=== PATIENT | male | born 1930 | race Caucasian/White ===

== ENCOUNTER → 2017-08-12 | Outpatient (CLI) | payer MEDICARE ==
[~2017-08-12] MED LIST: ACET500C OR; ACET500C PO; AMLO2.5T PO; ARTH650T11 PO; ASPI81TA83 OR; ATEN25TA OR; COLA50CA3 PO; DICL13PA TD; DOCU10CA PO; GABA100C PO; HYDR-3713 PO; LISI-538 PO; LOTR5CAP2 PO; MAGN1TAB25 PO; MELOPOW PO; SENN187T OR; TRAM100T13 PO; TRAM50TA2 OR; TYLE325T5 PO; ULTR37.539 PO; ULTR37.54 PO; VICO5TAB OR
[2017-08-12 09:41] LABS: CREATININE FOR GFR 1.61 MG/DL (0.70-1.30); GLOMERULAR FILTRATION RATE 43.5 (>35)
== END ==
LOC: M LAB 08:48
PROVIDERS: ATTEND Nurse Practitioner Family
DX: M96.1 Postlaminectomy syndrome, not elsewhere classified (principal); M51.26 Other intervertebral disc displacement, lumbar region

== ENCOUNTER → 2017-11-25 | Outpatient (CLI) | payer MEDICARE ==
[~2017-11-25] MED LIST changes: -ACET500C OR; -ACET500C PO; -AMLO2.5T PO; -ARTH650T11 PO; -ASPI81TA83 OR; -ATEN25TA OR; -COLA50CA3 PO; -DICL13PA TD; -DOCU10CA PO; +E-Z-GAS II EFFERVESCENT PACKET (SODIUM BICARB./CITRIC ACID/SIMETHICONE) As Ordered; +E-Z-HD 98% w/w 340GM SUSP BTL As Ordered; +E-Z-PAQUE 96% w/w SUSP 176GM BTL As Ordered; -GABA100C PO; -HYDR-3713 PO; -LISI-538 PO; -LOTR5CAP2 PO; -MAGN1TAB25 PO; -MELOPOW PO; -SENN187T OR; -TRAM100T13 PO; -TRAM50TA2 OR; -TYLE325T5 PO; -ULTR37.539 PO; -ULTR37.54 PO; -VICO5TAB OR
== END ==
LOC: M RAD 09:46
DX: R13.13 Dysphagia, pharyngeal phase (principal); K22.8 Other specified diseases of esophagus; K44.9 Diaphragmatic hernia without obstruction or gangrene
CPT/HCPCS: 74220

== ENCOUNTER 2019-08-22 13:26 | Observation (INO) | payer MEDICARE ==
[~2019-08-22] VITALS: Ht 170.2 cm; Wt 72.5 kg
[~2019-08-22 13:26] MED LIST changes: +ACET500C OR; +ACET500C PO; +AMLO2.5T PO; +ARTH650T11 PO; +ASPI81TA83 OR; +ATEN25TA OR; +COLA50CA3 PO; +DICL13PA TD; +DOCU10CA PO; -E-Z-GAS II EFFERVESCENT PACKET (SODIUM BICARB./CITRIC ACID/SIMETHICONE) As Ordered; -E-Z-HD 98% w/w 340GM SUSP BTL As Ordered; -E-Z-PAQUE 96% w/w SUSP 176GM BTL As Ordered; +GABA100C PO; +HYDR-3713 PO; +LISI-538 PO; +LOTR5CAP2 PO; +MAGN1TAB26 PO; +MELOPOW PO; +SENN187T OR; +TRAM100T13 PO; +TRAM50TA2 OR; +TYLE325T5 PO; +ULTR37.539 PO; +ULTR37.54 PO; +VICO5TAB OR
[2019-08-22] MEDS ORDERED: LOSA50TA5 PO (13:38)
[2019-08-22] MEDS ORDERED: FENT75DI5 TOP (13:38)
--- NOTE | 2019-08-22 14:18 | REP ---
Clinical: Chest pain . Comparison: 09/08/2010 . Findings: The mediastinum and cardiac silhouette are stable and within normal limits for portable technique. The lung ortiz demonstrate chronic changes without acute consolidation, effusion, or pneumothorax. Skeletal structures are intact. Impression: Chronic stable changes. No acute cardiopulmonary process appreciated. Electronically Signed by Sajan Alfonso MD 08/22/2019 02:10 P
--- NOTE | 2019-08-22 14:36 | REP ---
Clinical: Confusion and altered mental status. Comparison: None . Findings: Age-related atrophy and microvascular ischemic changes are appreciated. The ventricles and sulci are symmetric. Carroll-white differentiation is maintained. There is no evidence for acute intracranial hemorrhage, mass/mass effect, pathology or infarction. No extra-axial fluid collection. Calvarium is intact. Paranasal sinuses and mastoid air cells are clear. Impression: Age related atrophy and microvascular ischemic changes. No acute intracranial hemorrhage, infarction, or mass/mass effect. Electronically Signed by Sajan Alfonso MD 08/22/2019 02:27 P
[2019-08-22] MEDS ORDERED: ASPI81TA26 PO (14:46)
[2019-08-22] MEDS ORDERED: COLA100C5 PO (14:46)
[2019-08-22 14:54] LABS: VENOUS BASE EXCESS -3.6 (-2.0-2.0); VENOUS HCO3 21.9 MEQ/L (23.0-27.0); VENOUS O2 SATURATION 64.8 % (60.0-80.0); VENOUS PARTIAL PRESSURE CO2 41.2 mmHg (38.0-50.0); VENOUS PARTIAL PRESSURE O2 35.6 mmHg (30.0-50.0); VENOUS PH 7.344 UNITS (7.330-7.430); VENOUS STANDARD HCO3 20.7 MEQ/L; VENOUS TOTAL CO2 23.2 MEQ/L (24.0-28.0)
[2019-08-22 15:28] LABS: BASO % 0.5 % (0.0-1.0); EOS # 0.1 10^3/uL (0.0-0.5); EOS % 2.1 % (0.0-3.0); HEMATOCRIT 45.3 % (42.0-52.0); HEMOGLOBIN 14.2 g/dl (13.5-17.5); LYMPH # 1.5 10^3/uL (1.5-5.0); MEAN CORPUSCULAR HEMOGLOBIN 31.6 pg (27.0-33.0); MEAN CORPUSCULAR HGB CONC 31.3 g/dl (32.0-36.5); MEAN CORPUSCULAR VOLUME 100.7 fl (80.0-96.0); MONO # 0.7 10^3/uL (0.0-0.8); MONO % 10.2 % (0.0-5.0); NEUTROPHILS # 4.2 10^3/uL (1.5-8.5); NEUTROPHILS % 63.9 % (36.0-66.0); PLATELET COUNT, AUTOMATED 230 10^3/uL (150-450); WHITE BLOOD COUNT 6.6 10^3/uL (4.0-10.0)
[2019-08-22 15:37] LABS: ALBUMIN 3.5 GM/DL (3.2-5.2); ALT/SGPT 16 U/L (12-78); BILIRUBIN,DIRECT 0.2 MG/DL (0.0-0.2); BILIRUBIN,TOTAL 0.6 MG/DL (0.2-1.0); BLOOD UREA NITROGEN 32 MG/DL (7-18); CALCIUM LEVEL 9.2 MG/DL (8.8-10.2); CARBON DIOXIDE LEVEL 21 MEQ/L (21-32); CHLORIDE LEVEL 116 MEQ/L (98-107); CK-MB VALUE MASS < 1.0 NG/ML (<3.6); CPK CREATINE PHOSPHOKINASE 33 U/L (39-308); CREATININE FOR GFR 1.49 MG/DL (0.70-1.30); GLOMERULAR FILTRATION RATE 47.4 (>35); GLUCOSE, FASTING 94 MG/DL (70-100); MB/CK RELATIVE INDEX 3.03 (< OR =4); NT-PRO BNP 5058 PG/ML (<450); POTASSIUM SERUM 4.9 MEQ/L (3.5-5.1); SODIUM LEVEL 146 MEQ/L (136-145); TOTAL PROTEIN 6.7 GM/DL (6.4-8.2); TROPONIN I 0.02 NG/ML (< 0.10)
[2019-08-22] MEDS ORDERED: NS 500 ML IV ONE (15:45)
[2019-08-22 17:20] VITALS: BP 190/70
[2019-08-22] MEDS ORDERED: ACETAMINOPHEN TAB 650MG DOSE (2X325MG) PO PRN (18:15)
--- NOTE | 2019-08-22 18:36 | HPEPDOC ---
General Date of Admission Aug 22, 2019 at 13:27 Date of Service: Aug 22, 2019 Chief Complaint The patient is a 88-year-old male admitted with a reason for visit of Bradycardia With 41-50 Beats Per Min,Chronic Pain. Source: Family Exam Limitations: Mild cognitive slowing Timing/Duration: 24 hours Severity: Mild Associated Symptoms: Other (confusion) History of Present Illness This 88-year-old male who is in remarkably good state of health. His most significant medical problems and he has chronic back pain for many years. He has had multiple surgical procedures and he has been followed by pain clinic. His sole pain medication currently is fentanyl patch. Family has noted him to be confused today with not knowing his location or sequence of events. He has not had any fall injuries and has not hit his head. He has not had any changes to his medication dosages which are few. He has not had any increased difficulty with his ambulation or motor movements. Upon evaluation in the emergency room. He is noted to have some bradycardia with heart rate down into the 40s. By report, his baseline heart rate is in the 50s. Home Medications Scheduled Aspirin (Aspirin EC) 81 Mg Tablet.dr, 81 MG PO Q2D, (Reported) Docusate Sodium (Colace) 100 Mg Capsule, 100 MG PO DAILY, (Reported) Losartan/Hydrochlorothiazide (Losartan-Hctz 50-12.5 mg Tab) 1 Each Tablet, 1 TAB PO DAILY, (Reported) fentaNYL (fentaNYL) 75 Mcg Patch.td72, 75 MCG TOP Q3RD, (Reported) CURRENTLY APPLIED TO LEFT SIDE OF CHEST Allergies Coded Allergies: No Known Allergies (Unverified , 09/17/15) Past Medical History Medical History Past medical history is remarkable for hypertension for which she is on medication, and chronic back pain Surgical History Surgical history includes multiple cervical spine surgeries with fusion, multiple lower back surgeries, arthroscopic left knee surgery, unspecified, left shoulder surgery with repair, right carpal tunnel decompression, radical prostatectomy Social History * Smoker: former Smoker Alcohol: occationally Drugs: denies Psychosocial History: No pertinent psych hx 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 moist/pink, Pharynx Normal, Tongue Midline Neck Exam: Positive: Supple; Negative: JVD, thyromegaly, +2 carotid pulse wo bruit, Lymphadenopathy, Other Chest Exam: Positive: Clear to auscultation, Normal air movement Heart Exam: Positive: Bradycardic (but then heart rate increases on its own) Telemetry: Positive: Bradycardia Abdomen Exam: Positive: Normal bowel sounds Extremity Exam: Negative: Clubbing, Cyanosis, Edema, Normal pulses, Tenderness, Swelling, Other Skin Exam: Positive: Nl turgor and temperature Neuro Exam: Negative: Normal Gait, Normal Speech, Strength at 5/5 X4 ext, Normal Tone, Sensation Intact, Cranial Nerves 3-12 NL, Reflexes 2+, Other (the patient does not exhibit any focal neuromotor deficits) Psych Exam: Positive: Mental status NL, Mood NL, Other (he is able to answer most of my history questions fairly accurately with confirmation from his daughters at bedside. He does get confused about his location) Vital Signs Vital Signs Date Time Temp Pulse Resp B/P (MAP) Pulse Ox O2 Delivery O2 Flow Rate FiO2 08/22/19 17:20 98.0 54 20 190/70 (110) 96 Room Air Laboratory Data Labs 24H Laboratory Tests 2 08/22/19 14:09: Lactic Acid Level 1.9 08/22/19 14:37: Blood Gas Bicarbonate Standard 20.7, Venous Blood pH 7.344, Venous Blood Partial Pressure CO2 41.2, Venous Blood Partial Pressure O2 35.6, Venous Blood Total Carbon Dioxide 23.2L, Venous Blood HCO3 21.9L, Venous Blood Oxygen Saturation 64.8, Venous Blood Base Excess -3.6L, Anion Gap 9, Glomerular Filtration Rate 47.4, Calcium Level 9.2, Total Bilirubin 0.6, Direct Bilirubin 0.2, Aspartate Amino Transf (AST/SGOT) 11, Alanine Aminotransferase (ALT/SGPT) 16, Alkaline Phosphatase 99, Total Creatine Kinase 33L, Creatine Kinase MB < 1.0, Creatine Kinase MB Relative Index 3.03, Troponin I 0.02, MP-Qee-E-Type Natriuretic Peptide 5058H, Total Protein 6.7, Albumin 3.5, Albumin/Globulin Ratio 1.09, Thyroid Stimulating Hormone (TSH) 1.080 12/24/19 14:56: Immature Granulocyte % (Auto) 0.3, Neutrophils (%) (Auto) 63.9, Lymphocytes (%) (Auto) 23.0L, Monocytes (%) (Auto) 10.2H, Eosinophils (%) (Auto) 2.1, Basophils (%) (Auto) 0.5, Neutrophils # (Auto) 4.2, Lymphocytes # (Auto) 1.5, Monocytes # (Auto) 0.7, Eosinophils # (Auto) 0.1, Basophils # (Auto) 0.0, Nucleated Red Blood Cells % (auto) 0.0 CBC/BMP Laboratory Tests 08/22/19 14:37 08/22/19 14:56 Microbiology Microbiology 08/22/19 Blood Culture, Received Pending 08/22/19 Blood Culture, Received Pending Assessment/Plan 1. Confusion. This by report is of acute onset. It is fairly subtle; he is confused about sequence of events and about his location. He does not exhibit any neuromotor deficits. CT scan of the head is negative for any sort of infarct or bleed; he does show signs of age-related cerebral atrophy. Plans are to obtain an MRI to fully rule out acute stroke. 2. Bradycardia. Review of sparse clinic notes shows him to have a heart rate at best of 62. Patient will be monitored on telemetry overnight. We will also follow cardiac enzymes. Hypertension. Patient does have an apparent history of hypertension by virtue of review clinic notes and the fact that he is on losartan. It is not clear whether he has had his losartan today, so we will restore it. Plan / VTE VTE Prophylaxis Ordered?: Yes (Lovenox) Plan Diet: Continue Current Activity: Continue Current Diagnostics: MRI (to fully rule out CVA) Anticipated Discharge: Home MARIANA GEORGE MD Aug 22, 2019 18:35
[2019-08-22 20:00] VITALS: BP 120/48
--- NOTE | 2019-08-22 20:34 | ECGEPIP ---
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
[2019-08-22 23:59] VITALS: BP 160/70
[2019-08-23 04:00] VITALS: BP 140/58
[2019-08-23 05:51] LABS: HEMATOCRIT 45.8 % (42.0-52.0); MEAN CORPUSCULAR HEMOGLOBIN 31.3 pg (27.0-33.0); MEAN CORPUSCULAR HGB CONC 30.6 g/dl (32.0-36.5); MEAN CORPUSCULAR VOLUME 102.5 fl (80.0-96.0); PLATELET COUNT, AUTOMATED 179 10^3/uL (150-450); RED BLOOD COUNT 4.47 10^6/uL (4.30-6.10); WHITE BLOOD COUNT 6.1 10^3/uL (4.0-10.0)
[2019-08-23 06:13] LABS: CALCIUM LEVEL 8.5 MG/DL (8.8-10.2); CREATININE FOR GFR 1.27 MG/DL (0.70-1.30); POTASSIUM SERUM 4.7 MEQ/L (3.5-5.1)
[2019-08-23 08:00] VITALS: BP 192/68
[2019-08-23] MEDS: DOCUSATE SODIUM 100 MG CAP PO SCH (08:34)
[2019-08-23] MEDS: ENOXAPARIN 40 MG/0.4 ML SYRINGE (J1650) SC SCH (08:34)
[2019-08-23] MEDS ORDERED: LOSARTAN 50 MG TAB PO SCH (09:00)
[2019-08-23 12:00] VITALS: BP 180/72
[2019-08-23] MEDS: MELOXICAM (MOBIC) 7.5 MG TAB PO SCH (12:45)
[2019-08-23] MEDS: **hydrALAZINE HCL** 25 MG TAB PO SCH ×2 (14:19→20:36)
[2019-08-23] MEDS ORDERED: LOSARTAN 50 MG TAB PO ONE (14:30)
--- NOTE | 2019-08-23 14:58 | IPNPDOC ---
Text Note Date of Service The patient was seen on 08/23/19. NOTE SUBJECTIVE: Mr. Sanders was fully awake, alert and conversant this morning. He did not complain of any adverse symptoms overnight. Patient was admitted with concerns for "altered" mental status and bradycardia. Overnight, the patient's heart rate has been as low as 39 with pauses and then up to 54. Review of the past medical record shows his highest heart rate recorded to be 62. The patient is not often seen by physicians. OBJECTIVE: Please see vital signs below Physical exam: HEENT: Neck is supple with no adenopathy or thyromegaly, oral mucosa is moist, he does not have any scleral injection Cardiovascular exam: Slow but regular rate and rhythm, no appreciable murmur, no positives currently. Respiratory: Clear to auscultation with good air movement. Abdomen: Soft, flat, nontender. Extremities: No peripheral edema or lesions. Neuro: Cranial nerves II through XII appear to be fully intact to function, speech is clear, I am unable to determine whether his responses are fully factual as his daughters are not currently at bedside, but his overall responses seem to be appropriate. ASSESSMENT/PLAN: 1. Confusion. This is by report of acute onset. He does not appear confused to me today, but his daughters are not at bedside to confirm. Plans are to obtain an MRI to fully rule out CVA; it is not impossible that he may have had a TIA. 2. Bradycardia. Patient did exhibit pauses overnight. Patient may require pacemaker. Cardiology services contacted and they are following with the patient. We are ruling out fentanyl as contributory factor. Serial cardiac enzymes are negative. I am not sure we can readily attribute his confusion to bradycardia. 3. Hypertension. Although not listed patient does have a history of hypertension and apparently was usually on losartan. This has been restored, but patient continues with systolic blood pressure up to 192. We have adjusted his losartan dosing and added additional agent for blood pressure control for now. Uncontrolled hypertension certainly puts him at risk of TIA/CVA. 4. Chronic pain Patient has a history of chronic back pain due to spinal stenosis and has had multiple surgeries and other injection treatments. He is currently managed with a fentanyl patch. Cardiology concerned this may in fact be his bradycardia etiology and attempting to make use of alternative agent. VS,Fishbone, I+O VS, Fishbone, I+O Laboratory Tests 08/22/19 14:56 08/23/19 05:16 Vital Signs Date Time Temp Pulse Resp B/P (MAP) Pulse Ox O2 Delivery O2 Flow Rate FiO2 08/23/19 14:19 180/72 08/23/19 12:00 97.4 44 16 95 Room Air I&O- Last 24 Hours up to 6 AM 08/23/19 06:00 Intake Total 360 ml Output Total 0 ml Balance 360 ml MARIANA GEORGE MD Aug 23, 2019 14:58
[2019-08-23 16:00] VITALS: BP 170/68
[2019-08-23] MEDS ORDERED: SLF 3 ML SYR IV PRN (16:00)
[2019-08-23 20:00] VITALS: BP 174/95
[2019-08-23] MEDS: SLF 3 ML SYR IV SCH (20:36)
[2019-08-24] VITALS: BP 162/60
[2019-08-24] MEDS: SLF 3 ML SYR IV SCH ×2 (03:26→14:42)
[2019-08-24 03:54] LABS: APPEARANCE, URINE CLEAR (CLEAR); BACTERIA, URINE AUTO NEGATIVE (NEGATIVE); BILIRUBIN, URINE AUTO NEGATIVE (NEGATIVE); BLOOD, URINE BLOOD NEGATIVE (NEGATIVE); COLOR, URINE YELLOW (YELLOW); GLUCOSE, URINE (UA) AUTO NEGATIVE (NEGATIVE); KETONE, URINE AUTO TRACE mg/dL (NEGATIVE); LEUKOCYTE ESTERASE, URINE AUTO NEGATIVE (NEGATIVE); MUCUS, URINE SMALL (NEGATIVE); NITRITE, URINE AUTO NEGATIVE (NEGATIVE); PROTEIN, URINE AUTO NEGATIVE (NEGATIVE); RBC, URINE AUTO 1 /HPF (0-3); SPECIFIC GRAVITY URINE AUTO 1.014 (1.002-1.035); SQUAMOUS EPITHELIAL CELL UR AU 0 /HPF (0-6); UROBILINOGEN, URINE AUTO 0.2 mg/dL (0.0-2.0); WBC, URINE AUTO 0 /HPF (0-3)
[2019-08-24 04:00] VITALS: BP 172/82
[2019-08-24 06:13] LABS: BLOOD UREA NITROGEN 21 MG/DL (7-18); CALCIUM LEVEL 9.2 MG/DL (8.8-10.2); CARBON DIOXIDE LEVEL 26 MEQ/L (21-32); CHLORIDE LEVEL 110 MEQ/L (98-107); CREATININE FOR GFR 1.21 MG/DL (0.70-1.30); GLOMERULAR FILTRATION RATE > 60.0 (>35); GLUCOSE, FASTING 120 MG/DL (70-100); POTASSIUM SERUM 3.8 MEQ/L (3.5-5.1); SODIUM LEVEL 143 MEQ/L (136-145)
[2019-08-24 08:00] VITALS: BP 154/90
[2019-08-24 08:30] VITALS: BP 154/90
[2019-08-24] MEDS: MELOXICAM (MOBIC) 7.5 MG TAB PO SCH (08:30)
[2019-08-24] MEDS: **hydrALAZINE HCL** 25 MG TAB PO SCH (08:30)
[2019-08-24] MEDS: DOCUSATE SODIUM 100 MG CAP PO SCH (08:30)
[2019-08-24] MEDS ORDERED: ATORVASTATIN 20 MG TAB PO SCH (09:00)
[2019-08-24] MEDS ORDERED: fentaNYL 75 MCG/HR PATCH TOP SCH (09:00)
[2019-08-24] MEDS ORDERED: FENTANYL REMOVAL DOCUMENTATION MISC XX SCH (09:00)
[2019-08-24] MEDS ORDERED: LOSARTAN 50 MG TAB PO SCH (09:00)
[2019-08-24] MEDS ORDERED: ASPIRIN 81 MG ENTERIC TAB PO SCH (09:00)
[2019-08-24] MEDS: ENOXAPARIN 40 MG/0.4 ML SYRINGE (J1650) SC SCH (09:06)
--- NOTE | 2019-08-24 10:47 | REPVR ---
PROCEDURE INFORMATION: Exam: MR Head Without Contrast Exam date and time: 08/24/2019 6:13 PM Age: 88 years old Clinical indication: Altered mental status/memory loss; Confusion or disorientation TECHNIQUE: Imaging protocol: MR of the head without contrast. 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 Mild age-appropriate cerebral atrophy with moderate periventricular leukomalacia consistent with chronic underlying small vessel ischemic disease. The vestibulocochlear complexes bilaterally are normal. Ventricles: Normal. No ventriculomegaly. Bones/joints: Unremarkable. Soft tissues: Unremarkable. Sinuses: Normal as visualized. No acute sinusitis. Mastoid air cells: Normal as visualized. No mastoid effusion. Orbits: Unremarkable. IMPRESSION: 1. 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 2. Mild age-appropriate cerebral atrophy with moderate periventricular leukomalacia consistent with chronic underlying small vessel ischemic disease. THIS REPORT CONTAINS FINDINGS THAT MAY BE CRITICAL TO PATIENT CARE.: The findings were discussed via telephone conference with MARIANA Fox at 08/24/2019 10:44 AM EST. Electronically signed by: Chris Bo On 08/24/2019 10:46:35 AM
[2019-08-24 12:00] VITALS: BP 140/62
[2019-08-24 16:00] VITALS: BP 130/62
[2019-08-24] MEDS ORDERED: ASPI81TA26 PO (16:00)
[2019-08-24] MEDS ORDERED: OMEP20TA9 PO (16:00)
[2019-08-24] MEDS ORDERED: LOSA100T8 PO (16:00)
[2019-08-24] MEDS ORDERED: HYDR25TA PO (16:00)
[2019-08-24] MEDS ORDERED: MELO7.5T35 PO (16:00)
[2019-08-24] MEDS ORDERED: ATOR1TAB21 PO (16:00)
--- NOTE | 2019-08-24 22:01 | DS.PDOC ---
Discharge Summary General Date of Admission Aug 22, 2019 at 13:27 Date of Discharge August 24, 2019 Discharge Summary PROCEDURES PERFORMED DURING STAY: [Echocardiogram]. ADMITTING DIAGNOSES: 1. . DISCHARGE DIAGNOSES: 1. . COMPLICATIONS/CHIEF COMPLAINT: Bradycardia With 41-50 Beats Per Min,Chronic [place] n. HISTORY OF PRESENT ILLNESS: . HOSPITAL COURSE: . DISCHARGE MEDICATIONS: Please see below. ALLERGIES: Please see below. PHYSICAL EXAMINATION ON DISCHARGE: VITAL SIGNS: Please see below. GENERAL: HEENT: NECK: CARDIOVASCULAR EXAMINATION: RESPIRATORY EXAMINATION: ABDOMINAL EXAMINATION: EXTREMITIES: SKIN: NEUROLOGICAL EXAMINATION: PSYCHIATRIC EXAMINATION: LABORATORY DATA: Please see below. IMAGING: PROGNOSIS: ACTIVITY: [As tolerated]. DIET: DISCHARGE PLAN: DISPOSITION: 06 Home Health Service. DISCHARGE INSTRUCTIONS: 1. . ITEMS TO FOLLOWUP ON ON OUTPATIENT: 1. . DISCHARGE CONDITION: [Stable]. TIME SPENT ON DISCHARGE: Greater than minutes. Vital Signs/I&Os Vital Signs Date Time Temp Pulse Resp B/P (MAP) Pulse Ox O2 Delivery O2 Flow Rate FiO2 08/24/19 16:00 96.4 70 16 130/62 (84) 99 Room Air I&O- Last 24 Hours up to 6 AM 08/24/19 07:59 Intake Total 120 ml Output Total 420 ml Balance -300 ml Laboratory Data Labs 24H Laboratory Tests 2 08/24/19 03:31: Urine Color YELLOW, Urine Appearance CLEAR, Urine pH 6.0, Urine Specific [place] 1.014, Urine Protein NEGATIVE, Urine Glucose (Auto)(UA) NEGATIVE, Urine Ketones (Auto) TRACEH, Urine Blood NEGATIVE, Urine Nitrite NEGATIVE, Urine Bilirubin NEGATIVE, Urine Urobilinogen 0.2, Urine Leukocyte Esterase (Auto) NEGATIVE, Urine WBC (Auto) 0, Urine RBC (Auto) 1, Urine Hyaline Casts (Auto) 0, Urine Bacteria (Auto) NEGATIVE, Urine Squamous Epithelial Cells 0, Urine Mucus (Auto) SMALL, Urine Sperm (Auto) 08/24/19 05:17: Anion Gap 7L, Glomerular Filtration Rate > 60.0, Calcium Level 9.2 CBC/BMP Laboratory Tests 08/24/19 05:17 Microbiology Microbiology 08/22/19 Blood Culture - Preliminary, Resulted No Growth after 48 hours. All Specime... 08/22/19 Blood Culture - Preliminary, Resulted No Growth after 48 hours. All Specime... Discharge Medications Scheduled Aspirin (Aspirin EC) 81 Mg Tablet.dr, 81 MG PO DAILY Atorvastatin Calcium (Atorvastatin Calcium) 20 Mg Tablet, 40 MG PO QHS Docusate Sodium (Colace) 100 Mg Capsule, 100 MG PO DAILY, (Reported) Hydralazine HCl (Hydralazine HCl) 25 Mg Tablet, 25 MG PO BID Losartan/Hydrochlorothiazide (Losartan-Hctz 100-12.5 mg Tab) 1 Each Tablet, 1 TAB PO DAILY Meloxicam (Meloxicam) 7.5 Mg Tablet, 7.5 MG PO DAILY Omeprazole (Omeprazole) 20 Mg Tablet.dr, 1 TAB PO DAILY Allergies Coded Allergies: No Known Allergies (Unverified , 09/17/15) MARIANA GEORGE MD Aug 24, 2019 22:01
--- NOTE | 2019-08-25 02:11 | CR ---
DATE OF CONSULTATION: 08/24/2019 BRIEF CARDIOLOGY CONSULT NOTE REFERRING PHYSICIAN: Simran Torres MD PRIMARY CARE PROVIDER: Dr. Noman Santos INDICATION: Bradycardia and confusion. CLINICAL SUMMARY: This 88-year-old resident of [place], retired gentleman with history of hypertension and complicated degenerative disk disease with several cervical spine fusions and lumbar laminectomy followed by the pain clinic currently on a fentanyl patch, was found by his family to be more confused. He had not fallen and had not suffered any head injury. He has still been able to ambulate without problem. He was taken by his family to the emergency room and was found to have atrial fibrillation with somewhat slow ventricular response down into the 40s. His blood pressure was 158/68 without significant orthostatic drop, respiratory 18, O2 saturation 97% on room air and he was afebrile. He was admitted to the hospitalist service for observation on a telemetry unit and cardiology consultation was placed along with an order for an echocardiogram. HIS HOME MEDICATIONS INCLUDED: Losartan and hydrochlorothiazide 50-12.5 one tablet daily, aspirin 81 mg daily, Colace 100 mg by mouth daily and fentanyl 75 mcg patch every 72 hours. ALLERGIES: None known. INVESTIGATIONS: Chest x-ray reviewed independently showed obvious cardiomegaly even allowing for this portable upright technique, but with some tortuosity of his thoracic aorta with calcification of his aortic arch. Pulmonary arterial vessels appear to be prominent, but no pulmonary venous congestion. Well inflated lung ortiz with no localized infiltrate or pleural effusion. EKG: Underlying atrial fibrillation/flutter with slow ventricular response averaging 43 bpm. Left axis deviation in keeping with left anterior hemiblock with slow precordial R-wave progression. Incomplete left bundle branch block. Nonspecific lateral repolarization abnormalities likely LV strain. Echocardiogram: Read by myself with separate official report pending - this showed mild concentric left ventricular hypertrophy with proximal septal wall motion abnormality suspected to be related to right ventricular pressure overload yet preserved global resting left ventricular systolic function. At least mildly dilated left atrium with currently normal estimated mean left atrial pressure. At least moderately dilated right heart chambers with right ventricular hypokinesis and at least moderately severe pulmonary hypertension. His inferior vena cava was quite dilated to 2.7 cm with reduced respiratory collapse in keeping with right heart failure. Moderate aortic valvular sclerosis without functional abnormality. Normal aortic dimensions. Mild to moderate mitral annular calcification with mild insufficiency. Normal appearing tricuspid valve with moderate insufficiency. No apparent intracardiac mass or pericardial effusion. Blood work: Hemoglobin remains stable at 14 with normal white blood cell counts and platelet counts. The arterial blood gas was performed on admission, but this was of venous specimens showing a pH of 7.3, pCO2 of 41 and pO2 of 36. Electrolytes showed a marginal hypernatremia of 146, but were otherwise normal. BUN 32, creatinine 1.49 with IV hydration these normalize. Today, electrolytes were imbalance with BUN at 21, creatinine 1.2. Admission random glucose was 94. Normal liver function studies and troponin I level. Ultrasensitive TSH was normal at 1.08. Pro-BNP level was elevated at 5058, albumin was 3.5. Urinalysis was negative for protein and glucose. IMPRESSION/RECOMMENDATIONS: 1. High-grade AV block: Undoubtedly, this may have been in attributing to his confusion and perhaps element of prerenal azotemia. However, I suspect both his confusion and his bradyarrhythmia may well have been attributed to his fentanyl patch, which, I discontinued with good effect. Heart rates during the day today had normalized into the 60 and even in 70 range and he ambulated without problems. 2. Heart failure (diastolic/chronic): Likely on the basis of his hypertensive heart disease and pulmonary disease with right heart failure, somewhat out of keeping with his left heart failure. Discharged home on losartan along with a modest salt intake restriction. 3. Atrial fibrillation (unspecified). He has been seen through pain management with no comment regarding atrial fibrillation or bradycardia. Has both mitral valve disorder and hypertension to account for left atrial enlargement and predisposition to atrial tachyarrhythmia. Has been free of any symptom or sign of systemic thromboembolic events on low-dose aspirin antiplatelet therapy alone. 4. Abnormal EKG: Despite multiple coronary risk factors, he has been free of chest pain and troponin I level was negative. Currently on protective angiotensin receptive bryanna and aspirin antiplatelet therapy alone. 5. Hypertensive heart disease (benign with heart failure): His losartan and antihypertensive therapy was augmented by hydralazine with good effect. Previous charge blood pressure ranged from 130-140 over 60s. As mentioned his BUN and creatinine on admission have improved with druze of a normal heart rate and control of hypertension. The patient actually left before I had an opportunity to see him today. He will be following up with his primary care provider, Noman Santos. We would be pleased to participate in his future care if Dr. Santos requested this. At our recommendation, his fentanyl patch was discontinued as mentioned above and alternative measures, i.e. regular Tylenol 650 mg three times a day, was recommended along with low-dose meloxicam 7.5 mg daily.
--- NOTE | 2019-08-25 06:52 | ECHO ---
DATE OF STUDY: 08/24/2019 DATE OF : 1930 AGE: 88 GENDER: Male. HEIGHT: 67 inches WEIGHT: 160 pounds BODY SURFACE AREA: 1.84 meters squared INPATIENT: U - Room 3220 REFERRING PHYSICIAN: Dr. Simran Velásquez INDICATION: CVA. MEASUREMENTS 2-D Measurements: RV: 4.8 cm LV: 4.2 cm Septum: 1.3 cm Posterior wall: 1.3 cm Aortic root: 3.3 cm LA: 4.4 cm LVEF: 65% Doppler Measurements: AV: 1.2 m/s LVOT: 0.7 m/s LVOT diameter: 2.1 cm MV - E 160 Early mitral deceleration time: 200 ms E prime medial: 7.4 E prime lateral: 7.6 Average E/E prime ratio: 8/PCWP: 11.8 mmHg RVSP: 47 mmHg IVC: 2.7 cm COMMENTS: Underlying atrial fibrillation with slightly slow ventricular response averaging in the 50s. No intraventricular conduction disturbance. M-mode and two-dimensional echocardiography was performed with pulsed, continuous wave, color flow and tissue Doppler studies. Mild concentric left ventricle hypertrophy with subtle proximal septal wall motion abnormality suspected to be related to right ventricular pressure overload. Preserved global resting left ventricular systolic function. Mildly dilated left atrium with current estimated mean left atrial pressure upper limits of normal. At least mild to moderately dilated right heart chambers with slight right ventricular free wall hypokinesis and Doppler evidence of at least moderate pulmonary hypertension. Moderately dilated inferior vena cava with reduced respiratory collapse in keeping with at least mildly elevated central venous pressure. Moderate aortic valvular sclerosis without stenosis or insufficiency. Normal aortic dimensions. Mild mitral annular calcification with adequate leaflet excursion and no posterior systolic buckling, but mild mitral insufficiency. Normal appearing tricuspid valve with moderate insufficiency. No apparent intracardiac mass or pericardial effusion.
--- NOTE | 2019-08-25 08:13 | ECGEPIP ---
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
== END 2019-08-24 17:10 | disposition home health service (06) ==
LOC: M ED 13:26 → M ED INP 13:27 → M PCU 17:11
PROVIDERS: ADMIT Internal Medicine; ATTEND Internal Medicine
DX: R00.1 Bradycardia, unspecified (principal); R41.0 Disorientation, unspecified; G89.29 Other chronic pain; I10 Essential (primary) hypertension; Z79.82 Long term (current) use of aspirin; Z79.899 Other long term (current) drug therapy; Z87.891 Personal history of nicotine dependence
CPT/HCPCS: 36415; 70450; 70551; 71045; 80048; 80076; 81001; 82550; 82553; 82803; 83605; 83735; 83880; 84443; 84484; 85025; 85027; 87040; 93005; 93041; 93306; 96372; 96374; 99285; G0378; J1650

== ENCOUNTER 2019-10-09 08:57 | Day surgery (SDC) | payer MEDICARE ==
[~2019-10-09] VITALS: Ht 170.2 cm; Wt 67.3 kg
[~2019-10-09 08:57] MED LIST changes: -ARTH650T11 PO; +ARTH650T4 PO; +ASPI81TA26 PO; +ATOR1TAB21 PO; +COLA100C5 PO; +FENT75DI5 TOP; +HYDR12.55 PO; +HYDR25TA PO; +LOSA100T50 PO; +LOSA100T8 PO; +LOSA50TA5 PO; +LR 1,000 ML IV ONE; +MELO7.5T35 PO; +OMEP20TA9 PO; +XARE15TA PO
[2019-10-09] MEDS ORDERED: propofoL 200 MG/20 ML VIAL As Ordered ONE (08:59)
[2019-10-09] MEDS ORDERED: ONDANSETRON 4MG/2ML VIAL (J2405) As Ordered ONE (08:59)
[2019-10-09] MEDS ORDERED: LIDOCAINE 2% INJ 100 MG/5 ML SDV (FOR ANES.) As Ordered ONE (08:59)
[2019-10-09] MEDS ORDERED: dexameTHASONE 4 MG/ML 1ML VIAL (J1100) As Ordered ONE (08:59)
[2019-10-09] MEDS ORDERED: fentaNYL 100 MCG/2 ML INJECTION (J3010) As Ordered ONE (09:00)
[2019-10-09] MEDS ORDERED: MIDAZOLAM INJ 2 MG/2 ML VIAL (J2250) As Ordered ONE (09:00)
[2019-10-09] MEDS ORDERED: LIDOCAINE 1% SDV INJ 30 ML VIAL As Ordered ONE (10:10)
[2019-10-09] MEDS ORDERED: BACITRACIN PWD 50,000 UNITS VIAL As Ordered ONE (10:12)
[2019-10-09] MEDS ORDERED: AMIODARONE HCL 150 MG/100 ML PREMIXED BAG (NEXTERONE) (J0282 PER 30MG) As Ordered ONE (10:12)
[2019-10-09] MEDS ORDERED: ISOVUE-300 61% 50ML VIAL (Q9967) As Ordered ONE (10:38)
[2019-10-09] MEDS ORDERED: ceFAZolin SOD 2 GM in IV 1 EA IV ONE (11:00)
[2019-10-09] MEDS ORDERED: ACETAMINOPHEN TAB 650MG DOSE (2X325MG) PO PRN (12:30)
[2019-10-09] MEDS ORDERED: MOM 30ML SUSPENSION UDC PO PRN (12:30)
--- NOTE | 2019-10-09 13:10 | REP ---
Clinical: Status post pacemaker. Comparison: 08/22/2019. Findings: Cardiac silhouette is stable and upper limits of normal. Dual lead pacemaker now identified. Leads overlie the right atrium and right ventricle. No pneumothorax. Lung ortiz demonstrate chronic stable changes. Skeletal structures demonstrate degenerative changes. Impression: Status post dual lead pacemaker with leads over the right atrium and right ventricle. No pneumothorax. Electronically Signed by Sajan Alfonso MD 10/09/2019 01:02 P
[2019-10-09] MEDS ORDERED: ONDANSETRON 4MG/2ML VIAL (J2405) IV PRN (13:45)
[2019-10-09] MEDS ORDERED: LR 1,000 ML IV SCH (13:45)
--- NOTE | 2019-10-09 14:07 | ECGEPIP ---
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
--- NOTE | 2019-10-09 16:33 | REP ---
Clinical: Right lower rib pain. Comparison: 08/22/2019. Findings: Mediastinum and cardiac silhouette are stable with recently placed dual lead pacemaker again noted. Lung ortiz demonstrate chronic changes although mild basilar atelectasis cannot be excluded. No pneumothorax. Osseous structures demonstrate osteopenia without obvious acute injury. Impression: Chronic-appearing changes. Cannot exclude superimposed basilar atelectasis. Electronically Signed by Sajan Alfonso MD 10/09/2019 04:25 P
[2019-10-09 17:26] VITALS: BP 145/80
--- NOTE | 2019-10-09 19:10 | RO ---
DATE OF PROCEDURE: 10/09/2019 Implantation of permanent dual-chamber pacemaker. IMPLANTING E COMMERCE DEVELOPER: Dr. Noman Hand. ANESTHESIOLOGIST: Dr. Rodriguez PREOPERATIVE DIAGNOSES: 1. High-grade AV block (2:1 AV conduction with rate 38 bpm). 2. Paroxysmal atrial fibrillation. 3. Hypertensive heart disease with heart failure. 4. Mitral valve disorder / mitral insufficiency. POSTOPERATIVE DIAGNOSES: 1. High-grade AV block (2:1 AV conduction with rate 38 bpm). 2. Paroxysmal atrial fibrillation. 3. Hypertensive heart disease with heart failure. 4. Mitral valve disorder / mitral insufficiency. TYPE OF ANESTHESIA: Monitored local anesthesia. CLINICAL SUMMARY: This 89-year-old father of three grown children who lives with his daughter and grandchildren here in [place] has a history of hypertensive and mitral valvular heart disease complicated by abnormal EKG and paroxysmal atrial fibrillation status post CVA August 22, 2019. Echocardiogram August 24, 2019 showed mild left ventricle hypertrophy with proximal septal wall motion abnormality due to right ventricular pressure overload. Preserved global left ventricular systolic function. Mild left atrial enlargement with currently normal left atrial pressure moderately dilated right heart chambers with moderately severe pulmonary hypertension and dilated IVC with reduced respiratory collapse in keeping with right heart failure. Aortic valvular sclerosis without functional abnormality. Moderate mitral annular calcification with mild insufficiency. Pre discharge EKG from [facility] August 24, 2019 was read as atrial fibrillation with controlled ventricular response but in reality this showed underlying sinus rhythm with second-degree AV block Mobitz type 1 and rate averaging 69 beats per minute. There was also a left axis and low voltages with slow precordial R-wave progression, nonspecific ST / T-wave abnormalities but clear rhythm change from August 22, 2019. He was seen in my office in consultation October 06, 2019 and on low level of activity at home he had been virtually free of cardiovascular complaint. On examination, however, he was found to have a heart rate of 48 beats per minute with frequent irregularities. Blood pressure 136/52 sitting and EKG showed underlying sinus rhythm at 75 bpm with 2:1 AV conduction and ventricular rate of 38 beats per minute. Otherwise his EKG was unchanged from August 24, 2019. Chest x-ray August 22 showed obvious cardiomegaly with tortuosity of the thoracic aorta pulmonary vessels appear to be prominent but no pulmonary venous congestion infiltrate or pleural effusion. Blood work August 22, 2019 showed a normal complete blood count normal electrolytes, BUN 21, creatinine 1.2, troponin normal but BNP level 5058 with normal ultra sensitive TSH. In light of his high-grade AV block and heart failure. We recommended implantation of permanent dual-chamber pacemaker. His oral anticoagulation has been withheld for 2 days so that we can arrange his procedure today. DESCRIPTION OF PROCEDURE: Following informed consent with the patient in fasting state having received Ancef 2 grams IV premedication, he was taken to the operating theater. Numerous skin electrodes were applied to facilitate continuous electrocardiographic monitoring. Self-adhesive cardioverting / defibrillating pads were applied in an anteroposterior configuration and connected to a bedside cardioverter defibrillator in case he should develop atrial fibrillation during surgery. The left subclavian region was prepped and draped in usual fashion. The skin was infiltrated with 1% Xylocaine and the left axillary vein was catheterized using the micropuncture technique. A 5-cm linear incision was made several centimeters below and parallel to the left clavicle. Dissection was carried down to the level of the pectoralis fascia and the pocket was fashioned below the level of the incision line. Two bipolar active fixation steroid eluding pacing leads were then positioned to the right ventricular apex and high right atrial and appendage under fluoroscopic electrocardiographic control. The right ventricular lead ([employer] model number LPA 1200M/58, serial number [id number] measurements were focal and stimulation threshold 0.7, V / 0.4 ms / impedance 558 ohms. R wave amplitude measured 4.9 mV. The right atrial lead ([employer] model #[id number], serial number [id number]) measurements were: Stimulation threshold 1.0, V / 0.4 ms / impedance 388 ohms. The capital P wave amplitude measured 1.4 mV. These leads were secured in position with sleeves sutured at their insertion site. There were then connected to a dual-chamber pulse generator ([employer] model number [id number], MRI compatible, serial number [id number] and appropriate DDD pacing was documented. The generator was then placed in the pocket secured in position with a suture through the upper right-hand corner of the epoxy header. The subcutaneous tissues were approximated using a running chromic suture and skin was closed using theresa. A dry dressing was applied and the patient was returned to recovery room in good condition. Estimated blood loss less than 5 mL. No apparent complications. Portable upright chest x-ray in the recovery room showed good lead position with no pneumothorax. EKG showed underlying sinus rhythm with atrial sensing and tracking with consistent ventricular pacing having a leftward axis left bundle branch block QRS configuration in keeping with RV apical stimulation. Our plan is to monitor the patient on telemetry overnight while he receives an additional three doses of Ancef 1 gram IV every 8 hours. We will obtain a followup PA and left lateral chest x-ray and EKG in the morning and anticipate his discharge shortly thereafter. FINAL DIAGNOSIS: 1. High-grade AV block. 2. Paroxysmal atrial fibrillation. 3. Heart failure (diastolic dysfunction / chronic). 4. Abnormal EKG. 5. Hypertensive heart disease with heart failure. 6. Mitral insufficiency (non rheumatic). DISPOSITION: The patient will be requested to continue following his no added salt, low fat low cholesterol diet. We will request that he perform only light activities of daily living with his left arm until his theresa are removed in my office in 710 days time. We will also requested he avoid getting his incision wet and to let time. His medications will continue to losartan 100 mg daily, hydrochlorothiazide 12.5 mg daily, atorvastatin 20 mg daily, aspirin 81 mg daily, Xarelto 15 mg daily omeprazole 20 mg daily and hydrocodone, acetaminophen 5/325 mg by mouth every 6 hours as needed for back pain. He will be encouraged to contact us promptly for any abnormal erythema, swelling or discharge from his incision.
[2019-10-09] MEDS: ceFAZolin SOD 1 GM in D5W MINI-BAG PLUS 50 ML IV SCH (19:16)
[2019-10-09 20:00] VITALS: BP 134/64
[2019-10-09] MEDS ORDERED: SLF 3 ML SYR IV PRN (21:15)
[2019-10-09] MEDS: SLF 3 ML SYR IV SCH (21:23)
[2019-10-10] VITALS: BP 156/66
[2019-10-10] MEDS: ceFAZolin SOD 1 GM in D5W MINI-BAG PLUS 50 ML IV SCH ×2 (03:52→10:30)
[2019-10-10 04:00] VITALS: BP 150/63
[2019-10-10] MEDS: SLF 3 ML SYR IV SCH (05:38)
[2019-10-10 08:00] VITALS: BP 140/76
--- NOTE | 2019-10-10 08:16 | REP ---
Clinical: Status post pacemaker. Technique: PA and lateral. Comparison: 10/09/2019. Findings: Pacemaker in stable satisfactory position with leads overlying the right atrium and right ventricle. No pneumothorax. Cardiac silhouette is stable. Lung ortiz demonstrate chronic changes with suspected mild bibasilar atelectasis. No obvious effusion. Skeletal structures intact. Impression: Status post dual lead pacemaker. No pneumothorax. Chronic changes with superimposed mild basilar atelectasis. Electronically Signed by Sajan Alfonso MD 10/10/2019 08:09 A
[2019-10-10] MEDS ORDERED: LOSARTAN 50 MG TAB PO SCH (09:00)
[2019-10-10] MEDS ORDERED: ASPIRIN 81 MG CHEW TABLET PO SCH (09:00)
[2019-10-10] MEDS ORDERED: hydroCHLOROthiazide 12.5 MG CAPSULE PO SCH (09:00)
[2019-10-10] MEDS ORDERED: OMEPRAZOLE 20 MG CAP PO SCH (09:00)
[2019-10-10 09:12] VITALS: BP 140/76
--- NOTE | 2019-10-10 10:39 | ECGEPIP ---
[facility] Test Date: 2019-10-10 Pat Name: KENDRA RENTERIA Department: Room: [place] [address] Gender: Male Supervisor Doping: RENATA : 1930 Requested By: Noman Hand Order Number: [id number] Reading MD: Erma Hernández Measurements Intervals [place] Rate: 60 P: 106 ME: 206 QRS: -82 QRSD: 162 T: 78 QT: 481 QTc: 481 Interpretive Statements ELECTRONIC ATRIAL PACEMAKER ELECTRONIC VENTRICULAR PACEMAKER ABNORMAL RHYTHM ECG SIMILAR TO 10/09/19 Electronically Signed on 10-10-2019 10:39:36 EST by Erma Hernández
--- NOTE | 2019-10-10 11:58 | IPN ---
CARDIOLOGY PROGRESS NOTE DATE: 10/10/2019 SUBJECTIVE: Patient has been up in his room without any problems with palpitations, dizziness, shortness of breath, or anginal chest discomfort. Claims not to have had any incisional discomfort either. OBJECTIVE: Pleasant, elderly, male of lean body build, laying comfortably flat. Heart rate 60 beats per minute and regular. Blood pressure 140/76 supine. Respiratory rate 18. Oxygen saturation 94% on room air. Afebrile. Slightly increased anterior to posterior chest diameter with good air entry over both lung ortiz. His left subclavian pacemaker incision appears to be healing well with minimal erythema and no swelling. CHEST X-RAY: PA and left lateral study performed earlier today was reviewed independently and shows obvious cardiomegaly with unfolded thoracic aorta, but normal pulmonary vasculature. Stable pacing leads with pulse generator in the left subclavian region. No infiltrate or pleural effusion. No pneumothorax. EKG: This shows consistent AV sequentially paced rhythm and is unchanged from his tracing taken postoperatively yesterday. Paced QRS complexes having a leftward axis and left bundle branch block morphology in keeping with RV apical stimulation. IMPRESSION/PLAN: 1. Paroxysmal atrial fibrillation: According to device and interrogation and his air sampling and monitoring he has been free of any further bouts of atrial fibrillation. AT this point we will plan on resuming his Xarelto therapy tomorrow morning. 2. AV block/dual chamber pacemaker in situ: This device was interrogated completely today and shows excellent intracardiac electrograms and pacing thresholds with estimated battery longevity of more than 10 years. PA and left lateral chest x-ray confirms stable lead position. 3. Heart failure (diastolic/chronic): No current symptoms or signs of congestion. A chest x-ray shows clear lung ortiz. I am confident if we can preserve his atrial-ventricular contraction sequence the risk of him having further problems with congestive heart failure will be minimal. 4. Hypertensive heart disease (benign with heart failure): His current blood pressure is adequately controlled on his present combination therapy. No change has been made to his current losartan and hydrochlorothiazide. 5. Mitral valve disorder (non-rheumatic)/insufficiency: Continues to be free of any audible murmur at this time. No symptoms or signs of endocarditis. At this point, he has received three doses of IV antibiotic therapy and we feel it is safe for him to be discharged home. We requested that her perform only light activities of daily living with his left arm until his theresa are removed in my office October 17, 2019. He has also been encouraged to avoid getting his incision wet. There should not be a need to replace his current dressing that we placed today. Requested that he contact us promptly for any abnormal erythema, swelling, or discharge. His diet will resume, no added salt, low fat, low cholesterol and medications will continue: Losartan 100 mg daily, hydrochlorothiazide 12.5 mg daily, atorvastatin 40 mg daily, Xarelto 15 mg daily starting tomorrow, aspirin 81 mg daily, omeprazole 20 mg daily, Colace 100 mg twice a day, hydrocodone/acetaminophen 5/325 mg one tablet twice a day as needed back pain. MTDD
== END 2019-10-10 12:30 | disposition home or self-care (01) ==
LOC: M SDC 08:57 → M PCU 17:21 → M SDC 10-10 12:30
PROVIDERS: ATTEND Internal Medicine Cardiovascular Disease
DX: I44.2 Atrioventricular block, complete (principal); I48.0 Paroxysmal atrial fibrillation; I50.32 Chronic diastolic (congestive) heart failure; R94.31 Abnormal electrocardiogram [ECG] [EKG]; I11.0 Hypertensive heart disease with heart failure; I34.0 Nonrheumatic mitral (valve) insufficiency; E78.00 Pure hypercholesterolemia, unspecified; K21.9 Gastro-esophageal reflux disease without esophagitis; M47.816 Spondylosis without myelopathy or radiculopathy, lumbar region; M19.041 Primary osteoarthritis, right hand; M19.042 Primary osteoarthritis, left hand; I69.311 Memory deficit following cerebral infarction; Z85.46 Personal history of malignant neoplasm of prostate; Z87.891 Personal history of nicotine dependence; Z79.899 Other long term (current) drug therapy; Z79.01 Long term (current) use of anticoagulants; Z79.82 Long term (current) use of aspirin
CPT/HCPCS: 33208; 71045; 71046; 76000; 93005; 96365; 96366; C1785; C1898; J0690; J1100; J2250; J2405; J3010

== ENCOUNTER 2019-10-24 19:42 | Inpatient (IN) | payer MEDICARE ==
[~2019-10-24] VITALS: Ht 170.2 cm; Wt 77.0 kg
[~2019-10-24 19:42] MED LIST changes: -LR 1,000 ML IV ONE
[2019-10-24] MEDS: ATORVASTATIN 20 MG TAB PO SCH (21:00)
[2019-10-24] MEDS ORDERED: ATOR40TA75 PO (22:06)
[2019-10-24] MEDS ORDERED: ASPI81TA85 PO (22:06)
[2019-10-24] MEDS ORDERED: OMEP20TA9 PO (22:06)
[2019-10-24 22:33] LABS: BASO % 0.3 % (0.0-1.0); EOS # 0.1 10^3/uL (0.0-0.5); HEMATOCRIT 24.1 % (42.0-52.0); HEMOGLOBIN 7.9 g/dl (13.5-17.5); LYMPH # 1.6 10^3/uL (1.5-5.0); LYMPH % 17.3 % (24.0-44.0); MEAN CORPUSCULAR HEMOGLOBIN 32.5 pg (27.0-33.0); MEAN CORPUSCULAR HGB CONC 32.8 g/dl (32.0-36.5); MEAN CORPUSCULAR VOLUME 99.2 fl (80.0-96.0); MONO # 0.6 10^3/uL (0.0-0.8); MONO % 6.2 % (0.0-5.0); NEUTROPHILS % 74.9 % (36.0-66.0); PLATELET COUNT, AUTOMATED 292 10^3/uL (150-450); RED BLOOD COUNT 2.43 10^6/uL (4.30-6.10); WHITE BLOOD COUNT 9.3 10^3/uL (4.0-10.0)
[2019-10-24 22:44] LABS: INR 1.71; PROTHROMBIN TIME 19.8 SECONDS (11.8-14.0)
[2019-10-24 22:45] LABS: PARTIAL THROMBOPLASTIN TIME 34.9 SECONDS (25.0-38.4)
[2019-10-24] MEDS ORDERED: NORCO, ANEXSIA 5/325MG TABLET (HYDROcodone/ACETAMINOPHEN) PO PRN (22:45)
[2019-10-24] MEDS ORDERED: ACETAMINOPHEN TAB 650MG DOSE (2X325MG) PO PRN (22:45)
[2019-10-24 23:06] LABS: ALBUMIN 3.5 GM/DL (3.2-5.2); BILIRUBIN,DIRECT 0.1 MG/DL (0.0-0.2); BILIRUBIN,TOTAL 0.3 MG/DL (0.2-1.0); CALCIUM LEVEL 8.7 MG/DL (8.8-10.2); CREATININE FOR GFR 1.73 MG/DL (0.70-1.30); GLOMERULAR FILTRATION RATE 39.8 (>35); POTASSIUM SERUM 4.7 MEQ/L (3.5-5.1); TOTAL PROTEIN 6.2 GM/DL (6.4-8.2)
--- NOTE | 2019-10-24 23:40 | IPNPDOC ---
Text Note Date of Service The patient was seen on 10/24/19. NOTE Time of service 11:55 PM Mr. Sanders is an 88-year-old male with a past medical history of chronic HTN and chronic back pain who is admitted for management of symptomatic anemia 2/2 LGIB. 1. Acute Anemia 2/2 LGIB GI bleed likely 2/2 diverticulosis, angiodysplasia's (most common cause of small-bowel bleeding in older patients), AVM, polyps, colorectal cancer, or hemorrhoids He is short of breath, feeling dizzy and looks pale but denies having chest pain. Despite having GI bleed he also has macrocytosis. Stool was maroon in the ER. His last c-scope was more than 10yrs ago; during previous c-scopes he had polyps resected. 1 unit of PRBCs was ordered in the ER Plan: admit to PCU / IVF / CLD pending GI consult for C-scope / hold xarelto & BP meds / f/u retic #, iron panel, RBC folate, TSH, and serial Hg after transfusion Rest per 's note VS,Fishbone, I+O VS, Fishbone, I+O Laboratory Tests 10/24/19 21:49 Vital Signs Date Time Temp Pulse Resp B/P (MAP) Pulse Ox O2 Delivery O2 Flow Rate FiO2 10/24/19 23:30 97.2 80 18 90/45 (60) 98 10/24/19 23:15 Room Air CHAPO ZHENG MD Oct 24, 2019 23:40
[2019-10-24 23:45] VITALS: BP 108/52
[2019-10-25] VITALS (14 sets, daily range): BP systolic 100–179; BP diastolic 52–84
--- NOTE | 2019-10-25 00:11 | HPEPDOC ---
[facility] [place] Medical History & Physical Date of Admission Oct 24, 2019 Date of Service: Oct 24, 2019 Attending Physician: CHAPO ZHENG MD History and Physical CHIEF COMPLAINT: Hypotension, bloody stool HISTORY OF PRESENT ILLNESS: Patient is an 89-year-old male who presents to the emergency department with a 2 day history of feeling dizzy. Patient's granddaughter at been checking his blood pressure and noticed that his blood pressure at the low. They have recently called the patient's speech language specialist's off ice who told them to give him half dose of his losartan. Patient began noticing bright red bloody stool today. Patient having constipated before this. Patient denies any diarrhea. Patient has a history of atrial fibrillation and takes Xarelto. Patient denies any abdominal pain and other than feeling dizzy he sits up, feels otherwise well. In talking with the ED physician, he said that it was ivone red blood in the rectal vault when examined. Patient and family endorse a 8 pound weight loss since . They report this is unintentional. Patient says he hasn't been eating as much is usually does but recently started taking nutritional shakes he believes has helped. Patient denies any difficulty with eating and swallowing. REVIEW OF SYSTEMS: General: Patient denies fevers, chills, night sweats HEENT: Patient denies headaches, changes in vision, sore throat. Cardiovascular: Patient denies chest pain, chest pressure, or palpitations Respiratory: Patient denies shortness of breath, cough GI: Patient endorses bloody stools but denies abdominal pain, or vomiting : Patient denies pain or difficulty with urination Neurological: Patient denies numbness or tingling in extremities Extremities: Patient denies swelling or pain in extremities Skin: Patient denies any rashes or lesions. Hematologic: Patient denies any easy bruising. Lymphatic: Patient denies any lumps in his neck, axilla, or groin. PAST MEDICAL HISTORY: 1. Hypertension. 2. Pain/spinal stenosis. 3. Arthritis. 4. Atrial fibrillation PAST SURGICAL HISTORY: 1. Knee surgery. 2. Multiple shoulder surgeries. 3. 2 neck fusions 4. Multiple spinal injections.. SOCIAL HISTORY: Patient lives with his daughter. Patient smoked but quit 40 years ago. Patient very rarely drinks alcohol and denies any other drug use. 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 FAMILY HISTORY: Patient denies any diseases that run in his family. ALLERGIES: Please see below. HOME MEDICATIONS: Please see below. PHYSICAL EXAMINATION: VITAL SIGNS: Temperature 97.1, pulse 80, respiratory rate 18, blood pressure 108/521, pulse oximetry 100% on room air. General: Alert and oriented male patient who was laying on the ER stretcher when I walked in. Patient does not appear to be in any acute distress. HEENT: Normocephalic, atraumatic, moist mucous membranes, posterior pharynx was nonerythematous. Neck: No lymphadenopathy, thyromegaly, or carotid bruits. Cardiac: Regular rate and rhythm, no murmurs, normal S1, normal S2 Pulm: Clear to auscultation bilaterally. No wheezes, rhonchi, rales Abd: Nondistended, nontender to palpation, normal bowel sounds Ext: No edema bilateral lower extremities Neuro: No gross neurological defects. Patient was able follow commands Skin: Skin of the arms, lower legs, abdomen, back, head and neck were examined did not show any evidence of rash or lesions. LABORATORY DATA: See below. IMAGING: No imaging has been performed MICROBIOLOGY: Please see below. ASSESSMENT: Patient is an 89-year-old male who presents to the emergency room with low blood pressure and bright red blood per rectum. Patient's hemoglobin was found to be 7.9 the patient will be admitted for a lower GI bleed. PLAN: 1. Lower GI bleed. Patient and bright red blood per rectum on examination. Patient's hemoglobin was 7.9. Patient will receive 2 units of packed red blood cells. Gastroenterology will be consulted. Patient is consented for blood transfusion. Xarelto has been held. 2. Acute blood loss anemia. Patient was 7.9. We will continue to monitor as the patient receives blood transfusions. 3. Hypotension. Orthostatic vitals have been ordered. Patient's blood pressure remains on the lower side with the last pressure being 108/52. Patient's previous blood pressure was 90/45. We'll continue to monitor as long as the patient's mean arterial pressure stays above 65, we'll continue with blood transfusions as treatment. Patient's blood pressure medications have full parameters for hold for systolic pressure less than 130. 4. Acute kidney injury. Patient's creatinine was 1.73. Patient's baseline appears to be 1.2. This most likely secondary to acute blood loss anemia. We'll monitor how the patient's kidneys respond to blood transfusions. 5. History of hypertension. Patient's blood pressure medications have hold parameters for systolic blood pressure less than 130. Patient's losartan has been held secondary to elevation in the patient's creatinine from baseline. 6. Atrial fibrillation patient recently had a pacemaker placed and is rate controlled at this time. Anticoagulation has been held secondary to the GI bleed 7. DVT prophylaxis: Teds and sequentials 8. CODE STATUS: Full code Patient will be admitted to the progressive care unit for further monitoring and treatment. Gastroenterology will be consulted. Vital Signs Vital Signs Date Time Temp Pulse Resp B/P (MAP) Pulse Ox O2 Delivery O2 Flow Rate FiO2 10/24/19 23:30 97.2 80 18 90/45 (60) 98 10/24/19 23:15 Room Air Laboratory Data Labs 24H Laboratory Tests 2 10/24/19 21:49: Immature Granulocyte % (Auto) 0.3, Neutrophils (%) (Auto) 74.9H, Lymphocytes (%) (Auto) 17.3L, Monocytes (%) (Auto) 6.2H, Eosinophils (%) (Auto) 1.0, Basophils (%) (Auto) 0.3, Neutrophils # (Auto) 7.0, Lymphocytes # (Auto) 1.6, Monocytes # (Auto) 0.6, Eosinophils # (Auto) 0.1, Basophils # (Auto) 0.0, Nucleated Red Blood Cells % (auto) 0.0, Prothrombin Time 19.8H, Prothromb Time International Ratio 1.71, Activated Partial Thromboplast Time 34.9, Anion Gap 5L, Glomerular Filtration Rate 39.8, Calcium Level 8.7L, Total Bilirubin 0.3, Direct Bilirubin 0.1, Aspartate Amino Transf (AST/SGOT) 13, Alanine Aminotransferase (ALT/SGPT) 12, Alkaline Phosphatase 91, Total Protein 6.2L, Albumin 3.5, Albumin/Globulin Ratio 1.30 CBC/BMP Laboratory Tests 10/24/19 21:49 Home Medications Scheduled Aspirin (Aspir 81) 81 Mg Tablet.dr, 81 MG PO DAILY Atorvastatin Calcium (Atorvastatin Calcium) 40 Mg Tablet, 40 MG PO QHS Docusate Sodium (Colace) 100 Mg Capsule, 100 MG PO QHS Hydrochlorothiazide (Hydrochlorothiazide) 12.5 Mg Tablet, 12.5 MG PO DAILY Losartan Potassium (Losartan Potassium) 100 Mg Tablet, 100 MG PO DAILY Omeprazole (Omeprazole) 20 Mg Tablet.dr, 20 MG PO DAILY Rivaroxaban (Xarelto) 15 Mg Tablet, 15 MG PO DAILY Scheduled PRN Hydrocodone/Acetaminophen (Hydrocodone-Acetamin 5-325 mg) 1 Each Tablet, 1 TAB PO TID PRN for PAIN Allergies Coded Allergies: No Known Allergies (Unverified , 10/24/19) A-FIB/CHADSVASC A-FIB History Current/History of A-Fib/PAF?: Yes Current PO Anticoag Therapy: Yes Treatment Treatment ordered: Holding Other Reason Anticoagulant not given: Current bleeding GME ATTESTATION GME ATTESTATION My faculty preceptor for this patient encounter was physically present during the encounter and was fully available. All aspects of the patient interview, examination, medical decision making process, and medical care plan development were reviewed and approved by the faculty preceptor. The faculty preceptor is aware and concurs with the plan as stated in the body of this note and will attest to such by his/her cosignature. ATTENDING NOTE I reviewed and edited 's note and agree with the findings as documented. JIM YANEZ DO Oct 25, 2019 00:10 CHAPO ZHENG MD Oct 25, 2019 01:52
[2019-10-25] MEDS ORDERED: LIDOCAINE 5% (LIDODERM) PATCH TD PRN (00:30)
[2019-10-25 00:35] LABS: HEMATOCRIT 24.1 % (42.0-52.0)
[2019-10-25 00:54] LABS: PERCENT SATURATION 12.8 % (19.7-50.0); THYROID STIMULATING HORMONE 1.13 uIU/ML (0.358-3.740)
--- NOTE | 2019-10-25 05:13 | REPVR ---
PROCEDURE INFORMATION: Exam: US Retroperitoneal Limited, Kidneys Exam date and time: 10/25/19 (4:17am) Age: 89 years old Clinical indication: ISAIAS. Abnormal kidney function lab tests. TECHNIQUE: Imaging protocol: Real-time ultrasound of the retroperitoneum with image documentation. Examination was focused on the kidneys. COMPARISON: No relevant prior studies available FINDINGS: RIGHT KIDNEY --- The right kidney measures 9.8 cm in length. No hydronephrosis nor mass is noted. No upper tract stones are identified. LEFT KIDNEY --- The left kidney measures 11.7 cm in length. No hydronephrosis nor mass is noted. No upper tract stones are identified. URINARY BLADDER --- No significant pathology. No stones nor mass. IMPRESSION: No significant pathology. The kidneys are each normal in size, with no hydronephrosis. Electronically signed by: Octavia Gaxiola On 10/25/2019 05:13:18 AM
[2019-10-25] MEDS: NS 1,000 ML IV SCH ×2 (07:36→20:26)
[2019-10-25] MEDS ORDERED: LOSARTAN 50 MG TAB PO SCH (09:00)
[2019-10-25] MEDS ORDERED: OMEPRAZOLE 20 MG CAP PO SCH (09:00)
[2019-10-25] MEDS ORDERED: hydroCHLOROthiazide 12.5 MG CAPSULE PO SCH (09:00)
--- NOTE | 2019-10-25 09:54 | IPNPDOC ---
Text Note Date of Service The patient was seen on 10/25/19. NOTE Subjective: Patient is seen and examined at bedside. He says that he feels really good this morning. He is status post 2 units of packed red blood cells. Per nursing he had a mika-colored bowel movement which was formed. Objective: Vitals: See below General: Elderly male, in no acute distress. Pleasant and cooperative. HEENT: Conjunctiva are pale. Extraocular eye movements are intact. Mucous membranes are moist. Neck: No lymphadenopathy, thyromegaly, or carotid bruits. Heart: Regular rate and irregular rhythm; no murmurs, gallops, or rubs Lungs: Clear to auscultation bilaterally; no wheezes, rhonchi, or rales Abdomen: Normoactive bowel sounds, nontender to palpation Extremities: No edema bilateral lower extremities; nailbeds are slightly discolored with a light bluish hue Neuro: Answers questions appropriately, muscle strength 5 out of 5 throughout. No sensory deficits noted Assessment: Patient is an 89-year-old male who presents to the emergency room with low blood pressure and bright red blood per rectum. His hemoglobin was found to be 7.9, he was subsequently admitted for a lower GI bleed. Plan: 1. Lower GI bleed. Patient had bright red blood per rectum on examination in the emergency department. Patient's hemoglobin was 7.9. Patient is status post transfusion of 2 units of packed red blood cells. Dr. Gar from gastroenterology was consulted, appreciate his help. Xarelto and aspirin have been held. 2. Acute blood loss anemia. Hemoglobin on presentation to the emergency department was 7.9. Status post transfusion 2 units packed red blood cells. Repeat hemoglobin 10. 3. Hypotension. Orthostatics negative. Most likely secondary to volume loss from lower GI bleed. Status post 2 units packed red blood cells and currently on IV fluids. Patient's blood pressure medications have full parameters for hold for systolic pressure less than 130. 4. Acute kidney injury. Patient's creatinine was 1.73, baseline 1.2. Most likely secondary to hypovolemia from acute blood loss anemia. Continue to monitor. 5. History of hypertension. Patient's blood pressure medications have hold parameters for systolic blood pressure less than 130. Patient's losartan has been held secondary to elevation in the patient's creatinine from baseline. 6. Atrial fibrillation with slow ventricular response secondary to high-grade AV block. Currently has ventricular rate control status post biventricular pacemaker. No events on telemetry overnight. Anticoagulation has been held secondary to the GI bleed. CHADVASC 2, HAS-BLED 4. 7. DVT prophylaxis: TEDs and sequentials Disposition: Pending GI/colonoscopy, hemoglobin stabilization, clinical improvement VS,Fishbone, I+O VS, Fishbone, I+O Laboratory Tests 10/24/19 21:49 10/25/19 06:12 Vital Signs Date Time Temp Pulse Resp B/P (MAP) Pulse Ox O2 Delivery O2 Flow Rate FiO2 10/25/19 08:00 97.5 58 20 123/58 (79) 98 Room Air 10/25/19 00:45 100 I&O- Last 24 Hours up to 6 AM 10/25/19 06:00 Intake Total 875 ml Balance 875 ml GME ATTESTATION GME ATTESTATION My faculty preceptor for this patient encounter was physically present during the encounter and was fully available. All aspects of the patient interview, examination, medical decision making process, and medical care plan development were reviewed and approved by the faculty preceptor. The faculty preceptor is aware and concurs with the plan as stated in the body of this note and will attest to such by his/her cosignature. ATTENDING NOTE Patient was seen and examined by me this morning with the residents. Agree with the above assessment and plan ARTIE MORIN D.O. Oct 25, 2019 09:54 LAVERN WRIGHT MD Oct 26, 2019 12:39
[2019-10-25] MEDS ORDERED: PANTOPRAZOLE 40MG INJ (PROTONIX) (C9113) IV STA (12:57)
[2019-10-25 13:06] LABS: CALCIUM LEVEL 8.3 MG/DL (8.8-10.2); CREATININE FOR GFR 1.25 MG/DL (0.70-1.30); GLOMERULAR FILTRATION RATE 57.9 (>35); POTASSIUM SERUM 4.3 MEQ/L (3.5-5.1)
[2019-10-25] MEDS ORDERED: PANTOPRAZOLE 40MG INJ (PROTONIX) (C9113) IV ONE (14:30)
[2019-10-25] MEDS ORDERED: GOLYTELY SOLN 4000 ML BTL PO ONE (16:45)
--- NOTE | 2019-10-25 18:17 | CR.PDOC ---
General Date of Consultation: Oct 25, 2019 Referring Provider: LAVERN WRIGHT MD Attending Physician: ADAM HALLMAN MD Consultation Primary physician/ hospitalist: -Dr. Bhargavi Donohue Reason for consult: - Rectal bleeding and acute drop in hemoglobin. 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 Hand), is noted to have dizziness spells at home with documented low blood pressures, was brought to ER after noting blood in the bowel movements by his daughter. When examined by me, patient appeared to be confused and unable to provide detailed history, but is alert and awake and able to appropriately to simple commands. History was obtained from patient's daughter who is also one of the healthcare proxies for the patient. Patient did not report any diarrhea or abdominal pain or black colored stools. Patient was noted to have slightly dark/bloody bowel movement at home and today once in hospital. Pertinent negative GI symptoms: Patient denies fever, sick contacts, recent travel, nausea, vomiting, diarrhea, abdominal pain, loss of appetite, early satiety or unintentional weight loss. No history of hematemesis. Review of Systems: GI: as stated above CVS: No chest pain, No palpitations, No leg swelling. RS: No Shortness of breath, No Wheezing, no cough WEATHER ANALYST: No motor weakness, No sensory problems. As per patient's daughter, patient reported dizziness. Hematology: Has bruising on the left chest area, denies any fall, also noted to have swelling at the site of the pacemaker placement. Musculoskeletal: No joint pain, ambulating well. Skin: No rash : No hematuria, No burning sensation of the urine ENT: No ear discharge/ pain, No dysphagia. Eyes: No photophobia. Jaundice Home medications: reviewed. Antithrombotic agents: -On Xarelto, last dose was yesterday. Medical h/o: As above. Surgical h/o: None on abdomen. Social h/o: Alcohol: -Denies, smoking:, Quit 40 years ago,, IVDA/ drugs: Denies. Family h/o of GI cancers - None Prior Endoscopies: None in [facility] Prior GI evaluations: -None in [facility] Exam: Vitals: reviewed General: Alert and awake but oriented 1, then examined by me. As per patient's daughter, his mental status fluctuates with recent gradual decline. not in distress HEENT: Mild pallor, no icterus. Normal oropharynx, NO cervical lymph nodes. Chest: symmetric with bilateral clear air entry, left subclavian area - surgical wound from pacemaker placement-- healing well, but noted fluctuant swelling around the pacemaker, with slight ecchymosis, no warmth. Left chest area noted ecchymotic patches. CVS: S1, S2 heard, normal, no murmurs . Abdomen: non-distended, no surgical scars, soft, non-tender, no palpable masses, normal bowel sounds heard. Rectal exam: Patient refused / Deferred at this time in view of scheduled colonoscopy. Extremities: no pedal edema, pulses palpable. WEATHER ANALYST: no focal motor or sensory deficits. Moves all extremities. Labs: reviewed. Imaging: reviewed. Impression: - Symptomatic anemia, with dizziness and rectal bleeding (unclear duration, but noted one formed, slightly bloody bowel movement today ), and labs showing Acute drop in hemoglobin and hematocrit, in a patient with anticoagulation and recent pacemaker placement -- needs further evaluation. DDx-- PUD vs AVM bleeding vs Diverticular bleeding vs Colon polyps/ cancer. - Localized fluctuant swelling at the pacemaker site -- Following with Cardiology. Recommendations: - Patient's daughter who is the health care proxosy for patient is educated about the test results, possible differential diagnoses and All questions answered. - Will switch the home omeprazole 20 mg to pantoprazole IV 40 mg twice daily. for now. - Monitor Hemoglobin and hematocrit and transfuse as needed. - Hold anticoagulant for now if not contraindicated. - Will schedule for EGD and Colonoscopy tomorrow after the bowel prep. - The procedures, indications, risks (bleeding, perforation, infection, hypotension, respiratory depression, allergy, need for endotracheal intubation, surgery, colostomy, cardiac arrest, even ), benefits, limitations (e.g., missing a lesion), and all other alternatives (including no intervention) were explained to the patient's daughter over phone and she verbalized understanding and consented for the procedures. -- Pre- operative risk-assessment also reviewed with primary team. Please obtain 12 lead EKG. Patient long filler cigar roller machine is also made aware by patients daughter. - Further evaluation of the collection at the Pacemaker site as per the [facility] team and Cardiology. Plan of care discussed with patient and primary team. Patient verbalized understanding and agreed with the plan. Vital Signs/I&O Vital Signs Date Time Temp Pulse Resp B/P (MAP) Pulse Ox O2 Delivery O2 Flow Rate FiO2 10/25/19 16:00 97.4 80 20 128/84 (99) 99 Room Air 10/25/19 00:45 100 I&O- Last 24 Hours up to 6 AM 10/25/19 06:00 Intake Total 875 ml Balance 875 ml Laboratory Data CBC/BMP Laboratory Tests 10/24/19 21:49 10/25/19 06:12 10/25/19 12:13 10/25/19 17:42 Allergies Coded Allergies: No Known Allergies (Unverified , 10/24/19) Home Medications Scheduled Aspirin (Aspir 81) 81 Mg Tablet.dr, 81 MG PO DAILY, (Reported) Atorvastatin Calcium (Atorvastatin Calcium) 40 Mg Tablet, 40 MG PO QHS, (Reported) Docusate Sodium (Colace) 100 Mg Capsule, 100 MG PO QHS, (Reported) Hydrochlorothiazide (Hydrochlorothiazide) 12.5 Mg Tablet, 12.5 MG PO DAILY, (Reported) Losartan Potassium (Losartan Potassium) 100 Mg Tablet, 100 MG PO DAILY, (Reported) Omeprazole (Omeprazole) 20 Mg Tablet.dr, 20 MG PO DAILY, (Reported) Rivaroxaban (Xarelto) 15 Mg Tablet, 15 MG PO DAILY, (Reported) Scheduled PRN Hydrocodone/Acetaminophen (Hydrocodone-Acetamin 5-325 mg) 1 Each Tablet, 1 TAB PO TID PRN for PAIN, (Reported) ADAM HALLMAN MD Oct 25, 2019 18:17
[2019-10-25] MEDS ORDERED: BISACODYL 5 MG TAB PO ONE (18:30)
[2019-10-25] MEDS: ATORVASTATIN 20 MG TAB PO SCH (20:26)
[2019-10-25] MEDS ORDERED: DOCUSATE SODIUM 100 MG CAP PO SCH (21:00)
[2019-10-25] MEDS ORDERED: **NOTE PATIENT COMMENT** MISC XX PRN (21:00)
[2019-10-26] MEDS ORDERED: RAMELTEON 8 MG TAB (ROZEREM) PO SCH (03:30)
[2019-10-26 04:00] VITALS: BP 137/58
[2019-10-26] MEDS ORDERED: PANTOPRAZOLE 40MG INJ (PROTONIX) (C9113) IV SCH (07:00)
[2019-10-26 08:00] VITALS: BP 143/89
[2019-10-26] MEDS ORDERED: LIDOCAINE 2% INJ 100 MG/5 ML SDV (FOR ANES.) As Ordered ONE (08:41)
[2019-10-26] MEDS ORDERED: propofoL 200 MG/20 ML VIAL As Ordered ONE (08:41)
--- NOTE | 2019-10-26 09:34 | ECGEPIP ---
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 Order Number: [id number] Reading MD: Noman Hand Measurements Intervals [place] Rate: 80 P: [place]: 0 QRS: -82 QRSD: 168 T: 78 QT: 445 QTc: 513 Interpretive Statements underlying atrial flutter with consistent ventricular paced rhythm Paced QRS complexes with left axis and Left bundle branch block configuration in keeping with RV apical stimulation. Underlying atrial mechanism has changed from 10/10/19. QRS complexes are the same. Electronically Signed on 10-26-2019 9:33:37 EST by Noman Hand
--- NOTE | 2019-10-26 09:35 | ROOR ---
Patient Name: Doron Sanders Procedure Date: 10/26/2019 8:41 AM Date of : 1930 Age: 89 Room: [facility] Gender: Male Note Status: Finalized Procedure: Upper GI endoscopy Indications: Acute post hemorrhagic anemia, Recent gastrointestinal bleeding Providers: John Gar MD Referring MD: 2. Inpatient 2. Inpatient Requesting Provider: Medicines: Monitored Anesthesia Care Complications: No immediate complications. Procedure: Pre-Anesthesia Assessment: - Prior to the procedure, a History and Physical was performed, and patient medications and allergies were reviewed. The patient is competent. The risks and benefits of the procedure and the sedation options and risks were discussed with the patient. All questions were answered and informed consent was obtained. Patient identification and proposed procedure were verified by the physician, the nurse and the anesthesiologist in the procedure room. Mental Status Examination: alert and oriented. Airway Examination: normal oropharyngeal airway and neck mobility. Respiratory Examination: clear to auscultation. CV Examination: normal. Prophylactic Antibiotics: The patient does not require prophylactic antibiotics. Prior Anticoagulants: The patient has taken Xarelto (rivaroxaban), last dose was 2 days prior to procedure. ASA Grade Assessment: III - A patient with severe systemic disease. After reviewing the risks and benefits, the patient was deemed in satisfactory condition to undergo the procedure. The anesthesia plan was to use monitored anesthesia care (MAC). Immediately prior to administration of medications, the patient was re-assessed for adequacy to receive sedatives. The heart rate, respiratory rate, oxygen saturations, blood pressure, adequacy of pulmonary ventilation, and response to care were monitored throughout the procedure. The physical status of the patient was re-assessed after the procedure. The Endoscope was introduced through the mouth, and advanced to the second part of duodenum. The upper GI endoscopy was accomplished without difficulty. The patient tolerated the procedure well. Findings: The examined esophagus was normal. The Z-line was regular and was found in the distal esophagus. No gross lesions were noted in the entire examined stomach. A few 6 mm angioectasias without bleeding were found in the second portion of the duodenum. Coagulation for hemostasis using argon beam at 0.8 liters/minute and 20 sanon was successful. Estimated blood loss was minimal. For hemostasis, two hemostatic clips were successfully placed. Impression: - Normal esophagus. - Z-line regular, in the distal esophagus. - No gross lesions in the stomach. - A few non-bleeding angioectasias in the duodenum. Treated with argon beam coagulation. Clips were placed. - No specimens collected. Recommendation: - Patient has a contact number available for emergencies. The signs and symptoms of potential delayed complications were discussed with the patient. Return to normal activities tomorrow. Written discharge instructions were provided to the patient. - [facility]. - High fiber diet. - Use Protonix (pantoprazole) 40 mg PO twice daily - to be taken in morning (1/2 hour before breakfast) and at bedtime ( atleast 3 hours after last meal) for 6 weeks. - Resume Xarelto (rivaroxaban) at prior dose in 3 days. Refer to primary physician for further adjustment of therapy. - Observe patient's clinical course. - Telephone GI clinic if symptomatic in 2 weeks. - Return to primary care physician. John Gar MD John Gar MD 10/26/2019 9:34:55 AM Electronically signed by John Gar MD Number of Addenda: 0 Note Initiated On: 10/26/2019 8:41 AM Estimated Blood Loss: Estimated blood loss was minimal.
--- NOTE | 2019-10-26 09:49 | ROOR ---
Patient Name: Doron Sanders Procedure Date: 10/26/2019 8:40 AM Date of : 1930 Age: 89 Room: [facility] Gender: Male Note Status: Finalized Procedure: Colonoscopy Indications: Hematochezia, Acute post hemorrhagic anemia Providers: John Gar MD Referring MD: 2. Inpatient 2. Inpatient Requesting Provider: Medicines: Monitored Anesthesia Care Complications: No immediate complications. Procedure: Pre-Anesthesia Assessment: - Prior to the procedure, a History and Physical was performed, and patient medications and allergies were reviewed. The patient is competent. The risks and benefits of the procedure and the sedation options and risks were discussed with the patient. All questions were answered and informed consent was obtained. Patient identification and proposed procedure were verified by the physician, the nurse and the anesthesiologist in the procedure room. Mental Status Examination: normal. Airway Examination: normal oropharyngeal airway and neck mobility. Respiratory Examination: clear to auscultation. CV Examination: normal. Prophylactic Antibiotics: The patient does not require prophylactic antibiotics. Prior Anticoagulants: The patient has taken no previous anticoagulant or antiplatelet agents. ASA Grade Assessment: II - A patient with mild systemic disease. After reviewing the risks and benefits, the patient was deemed in satisfactory condition to undergo the procedure. The anesthesia plan was to use monitored anesthesia care (MAC). Immediately prior to administration of medications, the patient was re-assessed for adequacy to receive sedatives. The heart rate, respiratory rate, oxygen saturations, blood pressure, adequacy of pulmonary ventilation, and response to care were monitored throughout the procedure. The physical status of the patient was re-assessed after the procedure. The Colonoscope was introduced through the anus and advanced to the terminal ileum, with identification of the appendiceal orifice and IC valve. The colonoscopy was performed without difficulty. The patient tolerated the procedure well. The quality of the bowel preparation was good and adequate to identify polyps. The terminal ileum, ileocecal valve, appendiceal orifice, and rectum were photographed. Scope insertion time was 3 minutes. Scope withdrawal time was 12 minutes. The total duration of the procedure was 15 minutes. Findings: The perianal and digital rectal examinations were normal. The terminal ileum appeared normal. One large localized angioectasia with stigmata of recent bleeding was found in the cecum. Coagulation for hemostasis using argon plasma at 0.8 liters/minute and 20 sanon was successful. For hemostasis, three hemostatic clips were successfully placed. There was no bleeding at the end of the procedure. One large localized angioectasia without bleeding was found in the ascending colon. Coagulation for hemostasis using argon plasma at 0.8 liters/minute and 20 sanon was successful. For hemostasis, one hemostatic clip was successfully placed. There was no bleeding at the end of the procedure. Multiple small and large-mouthed diverticula were found in the ascending colon. There was no evidence of diverticular bleeding. Non-bleeding external and internal hemorrhoids were found during retroflexion. The hemorrhoids were medium-sized. Impression: - The examined portion of the ileum was normal. - One recently bleeding colonic angioectasia. Treated with argon plasma coagulation (APC). Clips were placed. - One non-bleeding colonic angioectasia. Treated with argon plasma coagulation (APC). Clip was placed. - Moderate diverticulosis in the ascending colon. There was no evidence of diverticular bleeding. - Non-bleeding external and internal hemorrhoids. - No specimens collected. Recommendation: - Patient has a contact number available for emergencies. The signs and symptoms of potential delayed complications were discussed with the patient. Return to normal activities tomorrow. Written discharge instructions were provided to the patient. - High fiber diet. - Continue present medications. - Miralax 1 capful (17 grams) in 8 ounces of water PO daily. - Resume Xarelto (rivaroxaban) at prior dose in 3 days. Refer to primary physician for further adjustment of therapy. - Repeat colonoscopy is not recommended due to current age (66 years or older) for screening purposes and depending on clinical and functional status. - Telephone GI clinic if symptomatic in 2 weeks. - Return to primary care physician. John Gar MD John Gar MD 10/26/2019 9:49:08 AM Electronically signed by John Gar MD Number of Addenda: 0 Note Initiated On: 10/26/2019 8:40 AM Estimated Blood Loss: Estimated blood loss was minimal.
[2019-10-26 09:55] VITALS: BP 143/77
[2019-10-26 10:37] LABS: HEMATOCRIT 25.2 % (42.0-52.0); HEMOGLOBIN 8.1 g/dl (13.5-17.5); MEAN CORPUSCULAR HEMOGLOBIN 30.6 pg (27.0-33.0); MEAN CORPUSCULAR HGB CONC 32.1 g/dl (32.0-36.5); MEAN CORPUSCULAR VOLUME 95.1 fl (80.0-96.0); PLATELET COUNT, AUTOMATED 235 10^3/uL (150-450); RED BLOOD COUNT 2.65 10^6/uL (4.30-6.10); WHITE BLOOD COUNT 6.8 10^3/uL (4.0-10.0)
[2019-10-26 10:51] LABS: CALCIUM LEVEL 8.3 MG/DL (8.8-10.2); CREATININE FOR GFR 1.25 MG/DL (0.70-1.30); GLOMERULAR FILTRATION RATE 57.9 (>35); POTASSIUM SERUM 4.3 MEQ/L (3.5-5.1)
[2019-10-26 12:00] VITALS: BP 119/55
--- NOTE | 2019-10-26 15:00 | DS.PDOC ---
Discharge Summary General Date of Admission Oct 25, 2019 at 01:30 Date of Discharge 10/26/19 Attending Physician: LAVERN WRIGHT MD Specialist/Consultants Involve: ADAM GAR MD Discharge Summary PROCEDURES PERFORMED DURING STAY: Upper GI endoscopy, colonoscopy, blood transfusion ADMITTING DIAGNOSES: 1. Lower GI bleed 2. Acute blood loss anemia 3. Hypotension 4. Acute kidney injury DISCHARGE DIAGNOSES: 1. 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 Acute blood loss anemia 3. Hypotension secondary to hypovolemia from acute blood loss 4. Acute kidney injury, resolved COMPLICATIONS/CHIEF COMPLAINT: Bloody bowel movements. HISTORY OF PRESENT ILLNESS: Doron is an 89-year-old male who presented to the emergency department with a 2- day history of feeling dizzy/lightheaded. Patient's granddaughter at been checking his blood pressure and noticed that his blood pressure was low. 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 Patient began noticing bright red bloody stool on the day of admission. 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 Significantly, he has a history of atrial fibrillation and takes Xarelto. Patient denies any abdominal pain and otherwise feels well. Patient and family endorse a 8 pound, unintentional weight loss since . Patient says he hasn't been eating as much as he usually does, but recently started taking nutritional shakes he believes has helped. Patient denies any difficulty with eating and swallowing. In the ER, rectal exam revealed ivone red blood in the rectal vault. His hemoglobin was found to be 7.9. HOSPITAL COURSE: He was subsequently admitted to the medical floor, Dr. Gar from gastroenterology was consulted for upper and lower endoscopy. He was transfused 2 units of packed red blood cells, and his hemoglobin was stabilized. On the morning of 10/26/2019, the patient was taken to the OR for upper endoscopy and colonoscopy. 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 Coagulation for hemostasis using argon beam was successful. For hemostasis, 2 hemostatic clips were successfully placed. 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 Regulation for hemostasis using argon plasma was successful. For hemostasis, one hemostatic clip was successfully placed. There is no bleeding at the the procedure. There also multiple small and large mouth, nonbleeding diverticula and nonbleeding external and internal hemorrhoids found during retroflexion. DISCHARGE MEDICATIONS: Please see below. ALLERGIES: Please see below. PHYSICAL EXAMINATION ON DISCHARGE: Vitals: See below General: Elderly male, in no acute distress. Pleasant and cooperative. HEENT: Conjunctiva are pale. Extraocular eye movements are intact. Mucous membranes are moist. Neck: No lymphadenopathy, thyromegaly, or carotid bruits. Heart: Regular rate and irregular rhythm; no murmurs, gallops, or rubs Lungs: Clear to auscultation bilaterally; no wheezes, rhonchi, or rales Abdomen: Normoactive bowel sounds, nontender to palpation Extremities: No edema bilateral lower extremities; nailbeds are pale but no longer bluish Neuro: Answers questions appropriately, muscle strength 5 out of 5 throughout. No sensory deficits noted LABORATORY DATA: Please see below. IMAGING: Renal ultrasound done 10/25/2019 showed no significant renal or bladder patho logy. The kidneys are normal in size with no hydronephrosis. PROGNOSIS: Fair ACTIVITY: As tolerated. DIET: High-fiber DISCHARGE PLAN: Discharge to home, patient lives with his daughter DISPOSITION: Stable. DISCHARGE INSTRUCTIONS: 1. High-fiber diet 2. MiraLAX 1 capful in 8 ounces of water by mouth daily ITEMS TO FOLLOWUP ON ON OUTPATIENT: 1. May resume Xarelto in 3 days 2. Called GI clinic if symptomatic in 2 weeks DISCHARGE CONDITION: Stable. TIME SPENT ON DISCHARGE: Greater than 30 minutes. Vital Signs/I&Os Vital Signs Date Time Temp Pulse Resp B/P (MAP) Pulse Ox O2 Delivery O2 Flow Rate FiO2 10/26/19 12:00 98.4 80 16 119/55 (76) 97 Room Air 10/25/19 00:45 100 I&O- Last 24 Hours up to 6 AM 10/26/19 06:00 Intake Total 2210 ml Output Total 850 ml Balance 1360 ml Laboratory Data Labs 24H Laboratory Tests 2 10/26/19 10:12: Nucleated Red Blood Cells % (auto) 0.0, Anion Gap 4L, Glomerular Filtration Rate 57.9, Calcium Level 8.3L CBC/BMP Laboratory Tests 10/25/19 17:42 10/26/19 02:19 10/26/19 10:12 Discharge Medications Scheduled Atorvastatin Calcium (Atorvastatin Calcium) 40 Mg Tablet, 40 MG PO QHS, (Reported) Docusate Sodium (Colace) 100 Mg Capsule, 100 MG PO QHS, (Reported) Hydrochlorothiazide (Hydrochlorothiazide) 12.5 Mg Tablet, 12.5 MG PO DAILY, (Reported) Losartan Potassium (Losartan Potassium) 100 Mg Tablet, 100 MG PO DAILY, (Reported) Omeprazole (Omeprazole) 20 Mg Tablet.dr, 20 MG PO DAILY, (Reported) Scheduled PRN Hydrocodone/Acetaminophen (Hydrocodone-Acetamin 5-325 mg) 1 Each Tablet, 1 TAB PO TID PRN for PAIN, (Reported) Allergies Coded Allergies: No Known Allergies (Unverified , 10/24/19) GME ATTESTATION GME ATTESTATION My faculty preceptor for this patient encounter was physically present during the encounter and was fully available. All aspects of the patient interview, examination, medical decision making process, and medical care plan development were reviewed and approved by the faculty preceptor. The faculty preceptor is aware and concurs with the plan as stated in the body of this note and will attest to such by his/her cosignature. GME ATTESTATION GME ATTESTATION My faculty preceptor for this patient encounter was physically present during the encounter and was fully available. All aspects of the patient interview, examination, medical decision making process, and medical care plan development were reviewed and approved by the faculty preceptor. The faculty preceptor is aware and concurs with the plan as stated in the body of this note and will attest to such by his/her cosignature. ARTIE MORIN D.O. Oct 26, 2019 15:00
== END 2019-10-26 16:07 | disposition home or self-care (01) | DRG 811 ==
LOC: M ED 19:42 → ENRESERVTM 10-25 00:11 → ENRESERVDT 10-25 00:11 → M PCU 10-25 01:30
PROVIDERS: ADMIT Internal Medicine; ATTEND Internal Medicine
PROC: 30233N1 Transfusion of Nonautologous Red Blood Cells into Peripheral Vein, Percutaneous Approach (ICD-10-PCS; 2019-10-25)
PROC: 0W3P8ZZ Control Bleeding in Gastrointestinal Tract, Via Natural or Artificial Opening Endoscopic (ICD-10-PCS; principal; 2019-10-26 08:50)
DX: D62 Acute posthemorrhagic anemia (principal); K31.811 Angiodysplasia of stomach and duodenum with bleeding; N17.9 Acute kidney failure, unspecified; I44.2 Atrioventricular block, complete; I48.91 Unspecified atrial fibrillation; I10 Essential (primary) hypertension; Z98.1 Arthrodesis status; Z87.891 Personal history of nicotine dependence; I95.9 Hypotension, unspecified; Z95.0 Presence of cardiac pacemaker; Z79.82 Long term (current) use of aspirin; Z79.01 Long term (current) use of anticoagulants; Z79.899 Other long term (current) drug therapy; K57.30 Diverticulosis of large intestine without perforation or abscess without bleeding; K64.4 Residual hemorrhoidal skin tags; K64.8 Other hemorrhoids; K59.03 Drug induced constipation; T40.605A Adverse effect of unspecified narcotics, initial encounter

== ENCOUNTER → 2020-07-05 | Outpatient (CLI) | payer MEDICARE ==
[~2020-07-05] MED LIST changes: +AMIO200T3 PO; +AMLO1TAB24 PO; +ARTH650T11 PO; -ARTH650T4 PO; +ASPI81TA86 PO; +ATOR40TA75 PO; +CLOP75TA2 PO; +FERR325T18 PO; +HYDR-3910 PO; +MIRA3350 PO; +MULTCAP PO; +TORS10TA3 PO
== END ==
LOC: M LABSMTC 11:58
PROVIDERS: ATTEND Anesthesiology
DX: Z01.818 Encounter for other preprocedural examination (principal); Z20.828 Contact with and (suspected) exposure to other viral communicable diseases
CPT/HCPCS: C9803; U0003

== ENCOUNTER 2020-07-10 11:50 | Day surgery (SDC) | payer MEDICARE ==
[~2020-07-10] VITALS: Ht 170.2 cm; Wt 62.6 kg
[~2020-07-10 11:50] MED LIST changes: +NS 1,000 ML IV ONE
[2020-07-10] MEDS ORDERED: LIDOCAINE VISCOUS 2% SOLN 15ML UDC As Ordered ONE (12:46)
[2020-07-10] MEDS ORDERED: MIDAZOLAM INJ 2MG/2ML VIAL (J2250 PER 1MG) As Ordered ONE ×2 (12:46→12:47)
[2020-07-10] MEDS ORDERED: CETACAINE SPRAY 5GM As Ordered ONE (12:46)
[2020-07-10] MEDS ORDERED: MIDAZOLAM INJ 2MG/2ML VIAL (J2250 PER 1MG) IV ONE (13:45)
[2020-07-10] MEDS ORDERED: MIDAZOLAM INJ 2MG/2ML VIAL (J2250 PER 1MG) IV PRN (13:45)
[2020-07-10 14:00] VITALS: BP 137/63
--- NOTE | 2020-07-11 10:02 | T-ECHO ---
DATE: 07/10/2020 REFERRING PHYSICIAN: Fuad Momin M.D. INDICATIONS: 45 day post Watchman MARLEY. PREPROCEDURE DIAGNOSIS: 45 day post Watchman MARLEY. POSTPROCEDURE DIAGNOSIS: 45 day post Watchman MARLEY in situ. PRINCIPAL FINDINGS: Well-seated Watchman left atrial appendage pusher device in situ without thrombus. PROCEDURE PERFORMED BY: Fuad Momin M.D. POLISHER AND BUFFER: None. PROCEDURE PERFORMED: Transesophageal echocardiogram. INTRAVENOUS (IV) SEDATION: Midazolam 4 mg IV. IV SEDATION: Midazolam 3 mg IV. COMPLICATIONS: None. DESCRIPTION OF PROCEDURE: Underlying rhythm appeared to be atrial fibrillation, ventricular paced. The patient received a total of 3 mg midazolam IV for the procedure. He received viscous lidocaine to gargle and swallow at the beginning of the procedure. Esophageal intubation was accomplished without difficulty by Dr. Momin using a Gwen three-dimensional transesophageal echocardiogram probe. The left ventricle appeared to be normal in size and systolic function, but appeared to have mild concentric left ventricular hypertrophy. Perhaps subtle paradoxical septal motion was present. LVEF 65% by visual estimate. Right ventricle appeared to be normal in size and systolic function. The left atrium appeared to be mildly enlarged. A Watchman device was and well-seated in the left atrial appendage with a complete seal. No thrombus on the Watchman device. Pulmonary venous connections to the left atrium appeared to be normal. Atrial septum was at least a little bit suspicious for the presence of a patent foramen ovale, but no color flow Doppler was seen going across the interatrial septum. The right atrium appeared to be moderately dilated. The presence of a pacemaker lead in the right atrium and coursing into the right ventricle. No pericardial effusion. Aortic valve was 3-cuspid aortic valve and displayed moderate focal thickening and focal calcific deposits. No aortic stenosis. There was very mild aortic regurgitation. Mitral leaflets appeared normal with the exception of some mild mitral annular calcification. No mitral valve prolapse. Mild-moderate mitral regurgitation was present. Tricuspid leaflets appeared structurally normal. Mild tricuspid regurgitation was present. Pulmonic valve appeared normal and mild pulmonic regurgitation was present. The distal aortic arch and descending thoracic aorta showed severe atheroma, which appeared to have a complex nature. CONCLUSIONS: 1. Well-seated Watchman left atrial closure device in situ without thrombus. 2. Probably mild concentric left ventricular hypertrophy. Normal left ventricular (LV) systolic function. Left ventricular ejection fraction (LVEF) 65% by visual estimate. Possible slight paradoxical septal motion and otherwise, normal left ventricular (LV) wall motion and wall thickening. 3. 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 Very mild aortic regurgitation. No aortic stenosis. 4. Probably mild mitral annular calcification. Mild-moderate mitral regurgitation. 5. Probable mild left atrial dilatation. 6. Moderate right atrial dilatation. 7. 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 8. Suspicious for a possible small patent foramen ovale (PFO). 9. 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 MTDD
== END 2020-07-10 14:30 | disposition home or self-care (01) ==
LOC: M SDC 11:50
PROVIDERS: ATTEND Internal Medicine Cardiovascular Disease
DX: I48.0 Paroxysmal atrial fibrillation (principal); Z95.818 Presence of other cardiac implants and grafts; I50.32 Chronic diastolic (congestive) heart failure; Z79.899 Other long term (current) drug therapy
CPT/HCPCS: 93312; 93320; 93325; J2250